=== PATIENT | female | born 1975 | race Caucasian/White ===

== ENCOUNTER 2023-06-01 10:49 | Emergency (ER) | payer SELFPAY ==
--- NOTE | ~2023-06-01 | CT_ITS ---
EXAMINATION: CTA chest PE protocol DATE: 06/01/2023 13:30 INDICATION: Dyspnea on exertion. Positive d-dimer. History of Covid infection 2 months ago. TECHNIQUE: Computed tomography angiography (CTA) of the chest was performed with 100 mL Omnipaque-350 intravenous contrast timed to evaluate the pulmonary arteries. Coronal maximum intensity projection 3D-reconstructions were created by the technologist. Automated exposure control and iterative reconst ruction technique were employed. Exam dose: 1030.27 mGy-cm total exam DLP. COMPARISON: 06/01/2023 2 view chest FINDINGS: There is diagnostic contrast enhancement of the pulmonary arteries and no apparent pulmonar y embolism considering prominent respiratory motion. There is mild discoid atelectasis or scarring in the lingula and left lower lobe. No pulmonary infilt rate or consolidation. There is mild bilateral hilar and mediastinal lymph node prominence, possibly reactive. There is dilatation of the ascending aorta and proximal aortic arch which measures up to approximatel y 4.5 cm diameter; by contrast the mid aortic arch measures approximately 2.3 cm diameter. There is s ome calcification at the aortic valve. No evidence of aortic dissection. No pericardial or pleural effusion. Small sliding hiatal hernia. Normal morphology of the adrenal glands. Included skeletal structures are unremarkable. IMPRESSION: No evidence of pulmonary embolism Aortic valve calcification and mild dilatation of the ascending aorta and proximal aortic arch. Consi kt aortic valve stenosis. Mild bilateral hilar and lymph node prominence, possibly reactive Mild discoid scarring or atelectasis, lingula and left lower lobe Small sliding hiatal hernia Reviewed, dictated and finalized at [facility]. Reviewed, dictated and finalized at [facility]. IMPRESSION: No evidence of pulmonary embolism Aortic valve calcification and mild dilatation of the ascending aorta and proxi mal aortic arch. Consider aortic valve stenosis. Mild bilateral hilar and lymph node prominence, possibly reactive Mild discoid scarring or atelectasis, lingula and left lower lobe Small sliding hiatal hernia
--- NOTE | ~2023-06-01 | US_ITS ---
EXAMINATION: US abdomen limited DATE: 06/01/2023 11:30 INDICATION: Right upper quadrant abdominal pain and vomiting. TECHNIQUE: Multiple grayscale and Doppler ultrasound images of the abdomen were obtained. COMPARISON: None FINDINGS: The pancreatic head and body are normal in appearance. The pancreatic tail is not visualized. Liver has normal contour, with a smooth surface. There is increased parenchymal echogenicity and coarsened echotexture consistent with diffuse hepatic steatosis. No liver lesion identified. No intrahepatic b iliary duct dilation suspected. Portal venous flow was seen in the hepatopetal, normal direction and has normal Doppler waveform. The gallbladder is normal in appearance. There is no cholelithiasis. Th e common bile duct measures 4 mm, which is normal. Sonographic Connolly sign was reported as positive b y the mannequin decorator. Visualized portion of the proximal inferior vena cava is normal. IMPRESSION: 1. Positive sonographic Connolly sign but with normal appearing gallbladder and no cholelithiasis to mo re specifically suggest acute cholecystitis. If there is continued clinical concern for acute cholecy stitis could consider HIDA scan for further evaluation. Reviewed, dictated and finalized at location [facility]. IMPRESSION: 1. Positive sonographic Connolly sign but with normal appearing gallbladder and n o cholelithiasis to more specifically suggest acute cholecystitis. If there is continued clinical concern for acute cholecystitis could consider HIDA scan for further evaluation.
--- NOTE | ~2023-06-01 | CT_ITS ---
EXAMINATION: CT brain wo con DATE: 06/01/2023 13:25 INDICATION: Altered mental state. Hallucinations. Migraine without. Dizziness. TECHNIQUE: Computed tomography (CT) of the head was performed without intravenous contrast. The mA wa s adjusted according to patient size. Iterative reconstruction technique was employed. Exam dose: 60 5.33 mGy-cm total exam DLP. COMPARISON: None FINDINGS: There is subtle asymmetric focal diminished attenuation of the anterior aspect of the head of the left caudate nucleus No intracranial mass lesion or hemorrhage or cerebrovascular accident is evident otherwise. No midlin e shift or mass effect. Normal ventricular size. No subdural or epidural hematoma. Included paranasal sinuses and mastoid air cells are normally developed and aerated. No fracture or bone destruction of the cranial vault. IMPRESSION: Focal asymmetric diminished attenuation along the anterior aspect of the left caudate nu cleus, possibly a chronic lacunar infarct. Consider MR brain correlation. No other significant intracranial abnormality is noted Reviewed, dictated and finalized at [facility]. Reviewed, dictated and finalized at [facility]. IMPRESSION: Focal asymmetric diminished attenuation along the anterior aspect of the left caudate nucleus, possibly a chronic lacunar infarct. Consider MR br ain correlation. No other significant intracranial abnormality is noted
--- NOTE | ~2023-06-01 | XR_ITS ---
Clinical Indication: Shortness of breath PA and lateral views of the chest: Comparison: None Findings: The lungs are clear, without evidence of focal consolidation or pleural effusion. Cardiome diastinal silhouette is within normal limits. Bones and soft tissues are unremarkable. Impression: Normal chest. Reviewed, dictated and finalized at [facility]. Impression: Normal chest.
--- NOTE | 2023-06-01 10:56 | ED.GENADULT ---
HPI - General Adult General Chief complaint: Shortness of Breath/Dyspnea Stated complaint: short of breath Time Seen by Provider: 06/01/23 10:56 History of Present Illness HPI narrative: Patient is a 48-year-old female with history of seizures here with multiple complaints. Patient states that she had COVID approximately 2 months ago, diagnosed via a home test. She states she recover the majority of her symptoms but has had some persistent dyspnea on exertion. She additionally notes that she has had an episode of vomiting due to sensitivity to smell which has occurred every other day over the last month. Patient additionally states that she has episodes where she feels like her mind goes blank. She states that she does list a sulfur thoughts but does not have any episodes of passing out. She denies any chest pain. No prior cardiac history. She additionally notes that she feels like she has been having episodes of draining while she has been wide awake. She describes these as seeing people get car accidents and she is unable to help them. [place], rides along with her who is a cdl team truck driver, saw her primary care doctor last December and was unable to see him for these symptoms due to being away from home. Of note she does have a history of some type of seizure, has never seen a neurologist, has never been on any antiepileptic medications. Related Data Allergies Allergy/AdvReac Type Severity Reaction Status Date / Time aspirin Allergy Rash Verified 06/01/23 11:00 Review of Systems Review of Systems: All systems reviewed & are unremarkable except as noted in HPI and below Exam Narrative: GENERAL: Well-appearing, well-nourished, and in no acute distress. HEAD: Normocephalic, atraumatic. EYES: PERRLA and EOMI. ENT: Nares clear. Mucous membranes moist. NECK: Supple. CHEST: Clear to auscultation. No respiratory distress. HEART: Regular rate and rhythm. Normal peripheral pulses. ABDOMEN: Soft, mild tenderness in the RUQ, no rebound or guarding, nondistended. EXTREMITIES: Normal range of motion. No edema. SKIN: Warm, dry, no rash. NEURO: No focal deficits. Alert and oriented x3. PSYCH: Normal mood and affect. Course Course Emergency Course: Chart review performed, no prior visits here in our system. Triage vitals show HTN, otherwise normal. Patient seen and evaluated. She is here complaining of a multitude of complaints including headaches, shortness of breath, vomiting, episodes of her mind blanking out. Broad list of differentials. Plan will be to evaluate for dyspnea including ACS workup, d-dimer. Abdominal lab work also ordered in addition to RUQ ultrasound given tenderness in that region with vomiting. D-dimer elevated, will do CTA PE study. Creatinine 1.69, unsure of what her baseline is. Will rehydrate. BNP mildly elevated, normal CXR without evidence of pulmonary edema. Magnesium low at 1.6. Gallbladder US negative for acute cholecystitis. UA consistent with a contaminated specimen without obvious evidence of infection. CT brain shows possible chronic lacunar infarct. No focal neuro deficits on exam. Patient notes she has had this in the past on imaging and has gotten workups for possible MS in the past which were unremarkable. PE study negative. Some reactive lymphadenopathy along with some scarring, both consistent with recent COVID infection. The results of pertinent diagnostic studies and exam findings were discussed. The patient?s provisional diagnosis and plan of care were discussed with the patient and present family. The patient and/or present family expressed understanding of the diagnosis and plan. The nurse was instructed to provide written instructions and appropriate follow-up information. The patient understands their need and responsibility to obtain additional follow-up as instructed. Provided with list of PCPs in the area if they plan to stay around here. The risks of medication
--- NOTE | 2023-06-01 10:58 | ECG_ITS ---
Measurements Intervals [place] Rate: 77 P: 10 [place]: 164 QRS: 3 QRSD: 94 T: 12 QT: 381 QTc: 432 Interpretive Statements SINUS RHYTHM MODERATE VOLTAGE CRITERIA FOR LVH, CONSIDER NORMAL VARIANT BORDERLINE ECG NO PREVIOUS ECG AVAILABLE FOR COMPARISON Electronically Signed On 06-01-2023 16:37:32 CDT by Carroll Baxter M.D.
[2023-06-01 11:00] VITALS: O2SAT 98
[2023-06-01 11:03] VITALS: BP 179/89; PULSE 88; RESP 18; TEMP 36.7; O2SAT 98
[2023-06-01 12:08] LABS: Basophils Absolute Auto 0.06 K/mm3 (0.00-0.10); Basophils Percent Auto 0.5 % (0.0-1.0); Eosinophils Absolute Auto 0.37 K/mm3 (0.02-0.50); Eosinophils Percent Auto 3.1 % (1.0-6.0); Hematocrit 30.2 % (35.0-49.0); Hemoglobin 10.3 g/dL (12.0-15.0); Immature Granulocyte Percent A 0.8 % (0.0-0.0); Lymphocytes Absolute Auto 2.99 K/mm3 (1.10-4.50); Lymphocytes Percent Auto 25.3 % (18.0-42.0); Mean Corpuscular HGB Conc 34.1 g/dL (32.0-36.0); Mean Corpuscular Hemoglobin 30.1 pg (27.0-31.0); Mean Corpuscular Volume 88.3 fL (78.0-102.0); Mean Platelet Volume 9.3 fl (9.2-11.8); Monocytes Absolute Auto 0.66 K/mm3 (0.10-0.90); Monocytes Percent Auto 5.6 % (2.0-11.0); Neutrophils Absolute Auto 7.7 K/mm3 (1.7-7.2); Neutrophils Percent Auto 64.7 % (50.0-70.0); Platelet Count Result 341 K/mm3 (150-420); Pregnancy On Board Control Positive; Red Blood Count 3.42 M/mm3 (4.20-5.40); Red Cell Distribution Width 12.3 % (11.6-14.4); Urine Pregnancy Test Negative; White Blood Count 11.8 K/mm3 (4.8-10.8)
[2023-06-01 12:10] VITALS: BP 132/69; PULSE 89; RESP 16; TEMP 36.8; O2SAT 97
[2023-06-01 12:22] LABS: D Dimer 1.65 mg/L (0.19-0.50)
[2023-06-01 12:28] LABS: Appearance Urine Slightly Cloudy (Clear); Bilirubin Urine Negative (Negative); Blood Urine 2+ (Negative); Color Urine Light Yellow (Yellow); Glucose Urine UA 1+ (Negative); Ketones Urine Negative (Negative); Leukocyte Esterase Ur Negative LEU/UL (Negative); Nitrate Urine Negative (Negative); Protein Urine 3+ (Negative); Urobilinogen Urine 0.2 mg/dL (0.2-1.0); pH Urine 6.5 (5.0-8.0)
[2023-06-01 12:33] LABS: Add Urine Microscopic? YES; Bacteria Urine 2+ /hpf; Squamous Epithelial Cell Urine Moderate /hpf (Few)
[2023-06-01 12:33] LABS: Alanine Aminotransferase 7 U/L (14-59); Alkaline Phosphatase 79 U/L (46-116); Anion Gap 11 mmol/L (8-16); Aspartate Amino Transferase 10 U/L (15-37); Bilirubin,Total 0.2 mg/dL (0.00-1.00); Blood Urea Nitrogen 24 mg/dL (7-18); Calcium 8.6 mg/dL (8.5-10.1); Carbon Dioxide 23 mmol/L (21-32); Chloride 106 mmol/L (98-108); Estimated CRCL calculation 44 ml/min; Estimated Glomerular Filt Rate 32; Glucose 185 mg/dL (70-99); Lipase 23 U/L (16-77); Magnesium 1.6 mg/dL (1.8-2.4); NT Pro B Type Natriuretic Pept 967 pg/mL (0-125); Osmolality Calculated 299 mOsm/kg (285-295); Potassium 3.7 mmol/L (3.5-5.1); Sodium 140 mmol/L (136-145); Total Protein 6.2 g/dL (6.4-8.2); Troponin I 9.7 ng/L (0.00-60.4)
[2023-06-01] MEDS: MAGNESIUM OXIDE 400 MG TABLET PO (13:54)
[2023-06-01] MEDS: SODIUM CHLORIDE 0.9% IV 1,000 ML 999 ML IV CONT (13:55)
[2023-06-01 14:51] VITALS: BP 184/75; PULSE 74; RESP 16; O2SAT 99
[2023-06-01 15:05] VITALS: TEMP 36.2
== END 2023-06-01 15:10 | disposition home or self-care (01) ==
PROVIDERS: Emergency Provider Student in an Organized Health Care Education/Training Program
DX: R06.02 Shortness of breath (principal); E83.42 Hypomagnesemia; R79.1 Abnormal coagulation profile; N17.9 Acute kidney failure, unspecified; R11.2 Nausea with vomiting, unspecified
CPT/HCPCS: 36415; 70450; 71046; 71275; 76705; 80053; 81001; 81025; 83690; 83735; 83880; 84484; 85025; 85380; 93005; 96360; 99284; A9270; J7030; Q9967

== ENCOUNTER 2023-08-25 16:30 | Observation (INO) | payer SELFPAY ==
--- NOTE | ~2023-08-25 | XR_ITS ---
EXAMINATION: XR chest 1V portable Exam Date/Time: 08/25/2023 16:40 DIE DESIGNER HISTORY: CONGESTION X 3 WEEKS Comparison: 06/01/2023. RESULT: Lines, tubes, and devices: None. Lungs and pleura: Left basilar scar, otherwise clear. Cardiomediastinal silhouette: Stable. Other: No acute osseous or upper abdominal finding. IMPRESSION: No acute cardiopulmonary process. Reviewed, dictated and finalized at location [facility]. DESIGNER
--- NOTE | 2023-08-25 16:33 | ECG_ITS ---
Measurements Intervals [place] Rate: 73 P: 79 [place]: 179 QRS: 1 QRSD: 94 T: 45 QT: 389 QTc: 431 Interpretive Statements SINUS RHYTHM DELAYED PRECORDIAL R/S TRANSITION LEFT VENTRICULAR HYPERTROPHY WITH ST-T CHANGE BASELINE ARTIFACT- I, III, AVL, V2 BORDERLINE ECG COMPARED TO ECG 06/01/2023 11:47:51 NO SIGNIFICANT CHANGES Electronically Signed On 08-25-2023 19:32:30 COAT OPERATOR INSULATOR by Stanley Martinez D.O.
--- NOTE | 2023-08-25 16:37 | ED.SOB ---
HPI - SOB/Dyspnea General Chief Complaint: Nausea/Vomiting/Diarrhea Stated Complaint: chest pain/SOB Time Seen by Provider: 08/25/23 16:33 History of Present Illness HPI Narrative: Patient is a 48yo F with NV and not feeling well this afterooon. She is anxious and SOB too. MD elicited complaint: shortness of breath Onset (ago): day(s) (1) Timing: constant Severity: moderate Exacerbating factors: nothing Relieving factors: nothing Associated symptoms: chest pain, nausea/vomiting, chest congestion and dizziness Treatment prior to arrival: none Related Data Home oxygen amount: none Allergies Allergy/AdvReac Type Severity Reaction Status Date / Time aspirin Allergy Rash Verified 08/25/23 17:34 Review of Systems Review of Systems: All systems reviewed & are unremarkable except as noted in HPI and below Constitutional: Constitutional: Reports no additional constitutional complaints Eyes: Eyes: Reports no additional eye complaints ENT: Reports system reviewed and no additional complaints, except as documented Cardiovascular: Cardiovascular: Reports no additional cardiovascular complaints Respiratory: Respiratory: Reports no additional respiratory complaints Gastrointestinal: Gastrointestinal: Reports no additional gastrointestinal complaints Genitourinary: Genitourinary: Reports no additional female genitourinary complaints Musculoskeletal: Musculoskeletal: Reports no additional musculoskeletal complaints Integumentary/Breasts: Skin/Breast: Reports system reviewed and no additional complaints, except as docu Neurologic: Reports system reviewed and no additional complaints, except as documented Psychiatric: Psychiatric: Reports no additional psychiatric complaints Endocrine: Endocrine: Reports no additional endocrine complaints Hematologic/Lymphatic: Hematologic/Lymphatic: Reports no additional hematologic/lymphatic complaints Allergic/Immunologic: Allergic/Immunologic: Reports no additional allergic/immunologic complaints Exam Const: General: healthy appearing and ill appearing (sob and anxious) acutely Nutritional Appearance: well nourished Orientation/consciousness: patient oriented x3 HENMT: Head: normal to inspection Ears: external ears normal Face/Nose/Sinus: Normal external nose present Eyes: Conjunctivae: conjunctivae normal Pupils: Equal, round and reactive pupils present EOM: EOMs intact bilaterally Neck: Neck: normal visual inspection Chest: Chest palpation & inspection: normal inspection of the chest Resp: Effort & Inspection: normal respiratory effort, not labored and no retractions Auscultation: clear to auscultation bilaterally, no crackles and no rales Cardio: Rate: regular rate Rhythm: regular rhythm Heart sounds: no murmurs GI: Inspection: non-distended GI Palp: Yes Soft to palpation, No Tenderness to palpation present (GI), No Guarding due to palpation present (GI) and No Rigid due to palpation Auscultation: normal bowel sounds : General: Yes bladder normal to palpation Back/Spine/Pelvis: Back: no CVA tenderness Skin: General skin exam: normal color Rashes: no rashes Wounds: no wounds Neuro: General: patient oriented x3 Cranial nerves: Yes Nystagmus not present Speech: normal speech Extrem: General: normal to inspection Psych: Mental Status: mental status grossly normal Affect: normal affect Attitude: cooperative Course Vital Signs Vital signs: Vital Signs Oxygen Delivery Room Air 08/25/23 16:36 Temperature 36.8 C 08/25/23 16:44 Pulse Rate 80 08/25/23 18:59 Respiratory Rate 18 08/25/23 18:59 Blood Pressure 200/96 H 08/25/23 18:59 Pulse Oximetry 98 08/25/23 18:59 Oxygen Delivery Room Air 08/25/23 18:59 MDM - SOB/Dyspnea MDM Narrative Medical decision making narrative: Patient is a 48yo F with NV and SOB today. She is Flu A positive and dehydrated. She has JOANN. We will admitting for dehydration and BP control. Monitor labs
[2023-08-25 16:42] LABS: Basophils Absolute Auto 0.08 K/mm3 (0.00-0.10); Basophils Percent Auto 0.7 % (0.0-1.0); Eosinophils Absolute Auto 0.33 K/mm3 (0.02-0.50); Hematocrit 32.2 % (35.0-49.0); Hemoglobin 11.2 g/dL (12.0-15.0); Immature Granulocyte Absolute 0.06 K/mm3 (0.00-0.00); Immature Granulocyte Percent A 0.5 % (0.0-0.0); Lymphocytes Absolute Auto 2.36 K/mm3 (1.10-4.50); Lymphocytes Percent Auto 21.6 % (18.0-42.0); Mean Corpuscular HGB Conc 34.8 g/dL (32.0-36.0); Mean Corpuscular Hemoglobin 30.4 pg (27.0-31.0); Mean Corpuscular Volume 87.5 fL (78.0-102.0); Mean Platelet Volume 9.7 fl (9.2-11.8); Monocytes Absolute Auto 0.51 K/mm3 (0.10-0.90); Monocytes Percent Auto 4.7 % (2.0-11.0); Neutrophils Absolute Auto 7.6 K/mm3 (1.7-7.2); Neutrophils Percent Auto 69.5 % (50.0-70.0); Platelet Count Result 384 K/mm3 (150-420); Red Blood Count 3.68 M/mm3 (4.20-5.40); Red Cell Distribution Width 11.7 % (11.6-14.4); White Blood Count 10.9 K/mm3 (4.8-10.8)
[2023-08-25 16:44] VITALS: BP 179/96; PULSE 83; RESP 19; TEMP 36.8; O2SAT 99
[2023-08-25 17:11] LABS: Alanine Aminotransferase 11 U/L (14-59); Albumin Level 2.3 g/dL (3.4-5.0); Alkaline Phosphatase 72 U/L (46-116); Anion Gap 13 mmol/L (8-16); Aspartate Amino Transferase 12 U/L (15-37); Bilirubin,Total 0.2 mg/dL (0.00-1.00); Blood Urea Nitrogen 20 mg/dL (7-18); Calcium 8.4 mg/dL (8.5-10.1); Carbon Dioxide 23 mmol/L (21-32); Chloride 101 mmol/L (98-108); Estimated Glomerular Filt Rate 25; Glucose 183 mg/dL (70-99); Osmolality Calculated 291 mOsm/kg (285-295); Potassium 3.5 mmol/L (3.5-5.1); Sodium 137 mmol/L (136-145); Total Protein 6.5 g/dL (6.4-8.2)
[2023-08-25 17:14] LABS: Troponin I 13.7 ng/L (0.00-60.4)
[2023-08-25 17:18] LABS: SARS-CoV-2 RNA PCR Negative (Negative)
[2023-08-25 17:23] LABS: Influenza A QL RT-PCR Positive (Negative); Influenza B QL RT-PCR Negative (Negative); RSV RNA, RT-PCR Negative (Negative)
[2023-08-25] MEDS: LORazepam (*CRX) 0.5 MG TABLET PO (17:33)
[2023-08-25 17:38] LABS: Strep Group A RT-PCR NOT DETECTED (Negative)
[2023-08-25 18:59] VITALS: BP 200/96; PULSE 80; RESP 18; O2SAT 98
--- NOTE | 2023-08-25 19:03 | PC.NURSE ---
PT HAS CALMED DOWN. SIG OTHER AT BEDSIDE. PT IS TO HAVE IVF. REPORT TO JOSE CARDONA AT THIS TIME.
--- NOTE | 2023-08-25 19:10 | PC.NURSE ---
Report received, pt resting, IV started per order. Pt requesting something for pain for her H/A. Order obtained.
[2023-08-25] MEDS: SODIUM CHLORIDE 0.9% IV 1,000 ML 999 ML IV CONT (19:20)
[2023-08-25] MEDS: HYDROcodone/acetaminophen (*CRX) 5-325 MG TABLET 1 TAB PO (19:22)
[2023-08-25] MEDS: cloNIDine HCL 0.1 MG TABLET PO (20:12)
--- NOTE | 2023-08-25 20:30 | PC.NURSE ---
Pt remains anxious about her BP. Pt informed numerous times and educated on needs for consistent f/u care c a primary medical Dr when back home to get BP regulated as this is something that has probably been going on for some time. Pt admits she hasn't been to a Dr for f/u in over 2 yrs. and only has numerous visits to ER's in [place] and [place] when driving over the road c her spouse. Unknown complete hx on pts medical background due to poor historian. Pt informed on POC for admit tonight to continue giving fluids and to watch BP tonight. Pt agrees c POC to stay overnight and verbalized understanding of need to see a PMD for consistent medical care.
[2023-08-25] MEDS: LORazepam INJ (*CRX) 2 MG/ML VIAL 1 MG IV PUSH (20:43)
[2023-08-25] MEDS: SODIUM CHLORIDE 0.9% IV 1,000 ML 150 ML IV CONT (20:45)
[2023-08-25 20:53] VITALS: BP 190/92; PULSE 75; RESP 18; TEMP 36.9; O2SAT 97
[2023-08-25] MEDS: OSELTAMIVIR PHOSPHATE 30 MG CAPSULE PO (21:04)
--- NOTE | 2023-08-25 21:30 | PC.NURSE ---
senior piping designer notified, room received, pt will go to Rm 227.
[2023-08-25] MEDS: amLODIPine BESYLATE 5 MG TABLET 10 MG PO (21:58)
[2023-08-25 22:24] VITALS: BP 190/86; BP 190/87; PULSE 75; RESP 18; TEMP 36.9; O2SAT 98
[2023-08-25 22:35] VITALS: BP 184/62; PULSE 70; RESP 16; TEMP 36.1; O2SAT 97
--- NOTE | 2023-08-25 22:35 | ADMGEN ---
This patient, Lolis Deleon, was admitted to 2nd Floor Room 227-1. Patient/family oriented to hospital policies and general routines including ID bracelet, bed and alarms, visiting hours, pain management, procedures, bathroom and other care routines, personal items, smoking policy, room service/diet, and visiting hours. Information on how to activate the Rapid Response Team has been discussed. Patient/Family are encouraged to report perceived risks to care and to ask questions if they do not understand what they are told or what they should do.
[2023-08-25 23:28] VITALS: BMI 41.3
--- NOTE | 2023-08-25 23:40 | PC.NURSE ---
Patietn admitted to room 227, present, is alert and oriented x 3, oriented to call light and room, no c/o pain.
[2023-08-25 23:41] VITALS: BP 186/91; PULSE 64; RESP 18; TEMP 36; O2SAT 97
[2023-08-26 04:00] VITALS: BP 155/72; PULSE 70; RESP 20; TEMP 36.4; O2SAT 97
[2023-08-26 07:18] LABS: Alanine Aminotransferase 10 U/L (14-59); Albumin Level 1.8 g/dL (3.4-5.0); Alkaline Phosphatase 62 U/L (46-116); Anion Gap 10 mmol/L (8-16); Aspartate Amino Transferase 15 U/L (15-37); Bilirubin,Total 0.2 mg/dL (0.00-1.00); Blood Urea Nitrogen 21 mg/dL (7-18); Calcium 7.9 mg/dL (8.5-10.1); Carbon Dioxide 22 mmol/L (21-32); Chloride 108 mmol/L (98-108); Estimated CRCL calculation 39 ml/min; Estimated Glomerular Filt Rate 26; Glucose 160 mg/dL (70-99); Osmolality Calculated 296 mOsm/kg (285-295); Potassium 3.7 mmol/L (3.5-5.1); Sodium 140 mmol/L (136-145); Total Protein 5.4 g/dL (6.4-8.2)
[2023-08-26 08:00] VITALS: BP 155/72; PULSE 78; RESP 16; TEMP 36.7; O2SAT 99
[2023-08-26] MEDS: SODIUM CHLORIDE 0.9% IV 1,000 ML 999 ML IV CONT (09:33)
[2023-08-26] MEDS: traMADol HCL (*CRX) 50 MG TABLET PO (09:55)
[2023-08-26] MEDS: guaiFENesin/DEXTROMETHORPHAN 5 ML UDC 10 ML PO (09:56)
[2023-08-26] MEDS: ONDANSETRON INJ 4 MG/2 ML VIAL IV PUSH (11:51)
[2023-08-26 12:00] VITALS: BP 155/65; PULSE 78; RESP 14; TEMP 36.6; O2SAT 99
--- NOTE | 2023-08-26 12:49 | ECG_ITS ---
Measurements Intervals [place] Rate: 69 P: 19 [place]: 188 QRS: 37 QRSD: 90 T: -21 QT: 408 QTc: 439 Interpretive Statements SINUS RHYTHM VOLTAGE CRITERIA FOR LVH BORDERLINE R WAVE PROGRESSION, ANTERIOR LEADS CONSIDER INFERIOR INFARCT, AGE INDETERMINATE ABNORMAL ECG COMPARED TO ECG 08/25/2023 18:58:32 NO SIGNIFICANT CHANGES Electronically Signed On 08-26-2023 14:03:04 RECYCLING ASSISTANT by Stanley Martinez D.O.
--- NOTE | 2023-08-26 13:34 | PM.SD2 ---
Same Day Admit/Disch: HPI History of Present Illness Chief complaint: JOANN INFLUENZA A Narrative: Lolis Deleon is a 48 year oldecision making narrative: Patient is a 48yo F with NV and SOB today. She is Flu A positive and dehydrated. She has JOANN. We will admitting for dehydration and BP control. Monitor labs in am again too. Dr. Milner to take over care at this time. Lab Data female [facility] Social History Social History Smoking status: Former smoker Tobacco type: cigarettes Second hand tobacco smoke exposure: No Alcohol intake: never Substance use: never Substance use type: does not use Do You Feel Safe in your Home?: Yes Lack of Transportation: No Lack of Food: Never True Current Housing: I Have Housing Concerned About Future Housing: No Difficulty Paying Gas/Electric Bills: No Difficulty Paying for Meds: No Currently Unemployed: No Education: High School Diploma/GED Difficulty w/ Childcare or Family Care: No Spiritual care concerns: No Same Day Admit/Disch: Med Pre-admit Medications Home Medications Medication Instructions Recorded Confirmed Type benzonatate 100 mg capsule 100 mg PO TID PRN cough #20 caps 08/26/23 Rx ondansetron 4 mg disintegrating 4 mg PO Q8H PRN nausea and 08/26/23 Rx tablet vomiting #10 tabs pantoprazole 40 mg tablet,delayed 40 mg PO QAM 4 weeks #28 tabs 08/26/23 Rx release (Protonix) Review of Systems Review of Systems feelin unwell, cough , dehydration All systems reviewed & are unremarkable except as noted in HPI and below Exam Const: General: cooperative, comfortable and no acute distress DS: Data Data Completed and Pending Labs on day of discharge: Labs from last 24 hours 08/26/23 08/25/23 08/25/23 06:57 17:05 16:38 WBC RBC Hgb Hct MCV MCH MCHC RDW Plt Count MPV Immature Gran % (Auto) Neut % (Auto) Lymph % (Auto) [place] % (Auto) Eos % (Auto) Baso % (Auto) Lymph # (Auto) [place] # (Auto) Eos # (Auto) Baso # (Auto) Abs Immat Gran (auto) Absolute Neuts (auto) Absolute Nucleated RBC Nucleated RBC % Sodium 140 Potassium 3.7 Chloride 108 Carbon Dioxide 22 Anion Gap 10 BUN 21 H Creatinine 2.03 H Estim Creat Clear Calc 39 Estimated GFR 26 L Glucose 160 H Calculated Osmolality 296 H Calcium 7.9 L Total Bilirubin 0.2 AST 15 ALT 10 L Alkaline Phosphatase 62 Troponin I 13.7 Total Protein 5.4 L Albumin 1.8 L Influenza A (RT-PCR) Positive A Influenza B (RT-PCR) Negative RSV (RT-PCR) Negative SARS-CoV-2 RNA (RT-PCR) Negative Group A Strep (PCR) Not detected 08/25/23 16:37 WBC 10.9 H RBC 3.68 L Hgb 11.2 L Hct 32.2 L MCV 87.5 MCH 30.4 MCHC 34.8 RDW 11.7 Plt Count 384 MPV 9.7 Immature Gran % (Auto) 0.5 H Neut % (Auto) 69.5 Lymph % (Auto) 21.6 [place] % (Auto) 4.7 Eos % (Auto) 3.0 Baso % (Auto) 0.7 Lymph # (Auto) 2.36 [place] # (Auto) 0.51 Eos # (Auto) 0.33 Baso # (Auto) 0.08 Abs Immat Gran (auto) 0.06 H Absolute Neuts (auto) 7.6 H Absolute Nucleated RBC 0.00 Nucleated RBC % 0.0 Sodium 137 Potassium 3.5 Chloride 101 Carbon Dioxide 23 Anion Gap 13 BUN 20 H Creatinine 2.11 H Estim Creat Clear Calc Not Reportable Estimated GFR 25 L Glucose 183 H Calculated Osmolality 291 Calcium 8.4 L Total Bilirubin 0.2 AST 12 L ALT 11 L Alkaline Phosphatase 72 Troponin I Total Protein 6.5 Albumin 2.3 L Influenza A (RT-PCR) Influenza B (RT-PCR) RSV (RT-PCR) SARS-CoV-2 RNA (RT-PCR) Group A Strep (PCR) DS: Summary Hospital Course Reason for hospitalization: Dehydration, Influenza A Hospital Course: This is a year old female that has been admitted to the hospital with Dehydration and was found to have Influenza A. Patient was started on breathing treatments, Tamil
[2023-08-26 13:45] LABS: Hematocrit 29.1 % (35.0-49.0); Hemoglobin 9.9 g/dL (12.0-15.0); Mean Corpuscular Hemoglobin 30.2 pg (27.0-31.0); Mean Corpuscular Volume 88.7 fL (78.0-102.0); Mean Platelet Volume 9.8 fl (9.2-11.8); Platelet Count Result 290 K/mm3 (150-420); Red Blood Count 3.28 M/mm3 (4.20-5.40); Red Cell Distribution Width 11.9 % (11.6-14.4); White Blood Count 8.5 K/mm3 (4.8-10.8)
[2023-08-26 14:02] LABS: Anion Gap 9 mmol/L (8-16); Blood Urea Nitrogen 19 mg/dL (7-18); Calcium 7.8 mg/dL (8.5-10.1); Carbon Dioxide 22 mmol/L (21-32); Chloride 108 mmol/L (98-108); Estimated CRCL calculation 40 ml/min; Estimated Glomerular Filt Rate 27; Glucose 153 mg/dL (70-99); Osmolality Calculated 293 mOsm/kg (285-295); Potassium 3.7 mmol/L (3.5-5.1); Sodium 139 mmol/L (136-145); Troponin I 12.4 ng/L (0.00-60.4)
[2023-08-26 16:00] VITALS: BP 140/76; PULSE 76; RESP 16; TEMP 36.5; O2SAT 98
--- NOTE | 2023-08-26 17:45 | PC.NURSE ---
Discharge instructions given to pt and both state understanding. Wheeled to front door tolerated well.
--- NOTE | 2023-08-27 07:36 | PC.NURSE ---
Discharge call back attempted, mail box full, unable
--- NOTE | 2023-08-27 09:10 | PC.NURSE ---
Discharge call back completed, no questions regarding dc instructions
== END 2023-08-26 17:25 | disposition home or self-care (01) ==
LOC: CHSED 20:33 → CHS2ND 21:14
PROVIDERS: Emergency Medicine; Nurse Practitioner Family; Admitting Provider Internal Medicine; Emergency Provider Family Medicine; Visit Provider Internal Medicine
DX: N17.9 Acute kidney failure, unspecified (principal); J10.1 Influenza due to other identified influenza virus with other respiratory manifestations; E86.0 Dehydration; I10 Essential (primary) hypertension; Z20.822 Contact with and (suspected) exposure to COVID-19; R94.31 Abnormal electrocardiogram [ECG] [EKG]; Z87.891 Personal history of nicotine dependence
CPT/HCPCS: 36415; 71045; 80048; 80053; 84484; 85025; 85027; 87637; 87651; 93005; 96361; 96374; 99285; A9270; G0378; J2060; J2405; J7030

== ENCOUNTER 2024-04-12 04:49 | Emergency (ER) | payer SELFPAY ==
[2024-04-12 04:52] VITALS: BP 180/75; PULSE 67; RESP 18; TEMP 36.1; O2SAT 97
--- NOTE | 2024-04-12 04:56 | PC.NURSE ---
ER Provider at the bedside
--- NOTE | 2024-04-12 04:58 | ED.EAR ---
HPI - Ear Problem General Chief complaint: Ear Stated complaint: upper respiratory infection Time Seen by Provider: 04/12/24 04:58 Source: patient and family Mode of arrival: ambulatory Limitations: no limitations History of Present Illness HPI Narrative: 48 years old white female came to the ED by private car complaining of sore throat and lt ear pain started 7 hours prior to arrival to the emergency room. She denies any fever, chills, nausea, vomiting. History of hypertension, GERD and spastic colon. Patient lives with asymptomatic significant other Related Data Home Medications Medication Instructions Recorded Confirmed amlodipine 5 mg tablet 10 mg PO DAILY 04/12/24 04/12/24 metoprolol succinate 100 mg 100 mg PO DAILY 04/12/24 04/12/24 tablet,extended release 24 hr Allergies Allergy/AdvReac Type Severity Reaction Status Date / Time aspirin Allergy Rash Verified 08/25/23 17:34 Review of Systems Review of Systems: All systems reviewed & are unremarkable except as noted in HPI and below PMFSH Social History Social History Smoking status: Former smoker Tobacco type: cigarettes Second hand tobacco smoke exposure: No Alcohol intake: never Substance use: never Substance use type: does not use Do You Feel Safe in your Home?: Yes Lack of Transportation: No Lack of Food: Never True Current Housing: I Have Housing Concerned About Future Housing: No Difficulty Paying Gas/Electric Bills: No Difficulty Paying for Meds: No Currently Unemployed: No Education: High School Diploma/GED Difficulty w/ Childcare or Family Care: No Spiritual care concerns: No Exam Narrative: General appearance: Well-developed, well-nourished Skin: Normal color Head: Normocephalic, nontraumatic Eyes: Clear conjunctiva ENT: Oropharynx normal, left ear showed opaque tympanic membrane, nose normal Neck: Supple, nontender Chest and respiratory: Airway patent, no respiratory distress, no accessory muscle use Heart: Regular rate/rhythm Abdomen: Soft, nontender, no organomegaly, quiet bowel sounds Vascular: Normal peripheral pulses, normal capillary refill. Musculoskeletal: Normal range of motion, nontender back Neurologic: Alert and oriented ?3, [employer] is normal as tested, no gross motor deficit Course Vital Signs Vital signs: Vital Signs Temperature 36.1 C L 04/12/24 04:52 Pulse Rate 67 04/12/24 04:52 Respiratory Rate 18 04/12/24 04:52 Blood Pressure 180/75 H 04/12/24 04:52 Pulse Oximetry 97 04/12/24 04:52 Oxygen Delivery Room Air 04/12/24 04:52 Temperature 36.1 C L 04/12/24 04:52 Pulse Rate 67 04/12/24 04:52 Respiratory Rate 18 04/12/24 04:52 Blood Pressure 180/75 H 04/12/24 04:52 Pulse Oximetry 97 04/12/24 04:52 Oxygen Delivery Room Air 04/12/24 04:52 Medical Decision Making Vital Signs Vital Signs: Vital Signs Temperature 36.1 C L 04/12/24 04:52 Pulse Rate 67 04/12/24 04:52 Respiratory Rate 18 04/12/24 04:52 Blood Pressure 180/75 H 04/12/24 04:52 Pulse Oximetry 97 04/12/24 04:52 Oxygen Delivery Room Air 04/12/24 04:52 Temperature 36.1 C L 04/12/24 04:52 Pulse Rate 67 04/12/24 04:52 Respiratory Rate 18 04/12/24 04:52 Blood Pressure 180/75 H 04/12/24 04:52 Pulse Oximetry 97 04/12/24 04:52 Oxygen Delivery Room Air 04/12/24 04:52 Lab Data Labs: Lab Results 04/12/24 04/12/24 Range/Units 04:58 05:07 Influenza A (RT-PCR) Negative (Negative) Influenza B (RT-PCR) Negative (Negative) RSV (RT-PCR) Negative (Negative) SARS-CoV-2 RNA (RT-PCR) N
--- NOTE | 2024-04-12 05:04 | PC.NURSE ---
COVID PCR and strep swab obtained and taken to lab
[2024-04-12] MEDS: ACETAMINOPHEN 500 MG TABLET 1000 MG PO (05:06)
[2024-04-12] MEDS: ONDANSETRON HCL ODT 4 MG TABLET PO (05:07)
[2024-04-12 05:41] LABS: Strep Group A RT-PCR NOT DETECTED (Negative)
[2024-04-12 05:44] LABS: SARS-CoV-2 RNA PCR Negative (Negative)
[2024-04-12 05:46] LABS: Influenza A QL RT-PCR Negative (Negative); Influenza B QL RT-PCR Negative (Negative); RSV RNA, RT-PCR Negative (Negative)
[2024-04-12 06:05] VITALS: BP 178/72; PULSE 68; RESP 18; O2SAT 99
== END 2024-04-12 06:05 | disposition home or self-care (01) ==
PROVIDERS: Emergency Provider Emergency Medicine
DX: H92.02 Otalgia, left ear (principal); J02.9 Acute pharyngitis, unspecified; I10 Essential (primary) hypertension; Z87.891 Personal history of nicotine dependence; Z20.822 Contact with and (suspected) exposure to COVID-19
CPT/HCPCS: 87637; 87651; 99283; A9270